=== PATIENT | female | born 1975 | race Caucasian/White ===

== ENCOUNTER 2017-10-19 17:21 | Emergency (ER) | payer BC, OTHER ==
[~2017-10-19] VITALS: Ht 162.6 cm; Wt 63.5 kg
[2017-10-19 17:21] VITALS: BP 99/53
[2017-10-19] MEDS ORDERED: IBUPROFEN 600 MG TABLET PO ONE ×2 (17:48→18:00)
== END 2017-10-19 19:03 | disposition home or self-care (01) ==
LOC: ER 17:25
DX: S93.401A Sprain of unspecified ligament of right ankle, initial encounter (principal); S93.601A Unspecified sprain of right foot, initial encounter; F32.9 Major depressive disorder, single episode, unspecified; Z90.710 Acquired absence of both cervix and uterus; Z90.49 Acquired absence of other specified parts of digestive tract; W10.8XXA Fall (on) (from) other stairs and steps, initial encounter; Y93.89 Activity, other specified; Y92.89 Other specified places as the place of occurrence of the external cause; Y99.8 Other external cause status
CPT/HCPCS: 73610-TC; 73630-TC; A4606; Z7610